=== PATIENT | male | born 1955 | race Caucasian/White ===

== ENCOUNTER 2018-09-08 21:29 | Emergency (ER) | payer SELFPAY ==
[2018-09-08] MEDS ORDERED: GI Cocktail Oral Solution 30 ML PO ONE (21:47)
--- NOTE | 2018-09-08 21:53 | EDM.PDOC ---
ED HPI GENERAL MEDICAL PROBLEM - General Chief Complaint: General Stated Complaint: muscle pain Time Seen by Provider: 09/08/18 21:32 Source of Information: Reports: Patient - History of Present Illness INITIAL COMMENTS - FREE TEXT/NARRATIVE: Patient comes into the emergency department with complaints of lower back discomfort and epigastric discomfort. Patient states that his pain started about mid day. He states that he had a sudden sharp onset of lower bilateral back muscle spasms. He stated that it started to radiate up both of his sides and he started to notice that he had some indigestion. After noting the muscle pain and indigestion he decided to take 2 aspirins, 2 allergy medications- unknown of the names or dosing, baking soda/water, and gustavo and salt for relief. Patient states that his muscle pain has dissipated however he still has indigestion/heartburn. He states that he gets this quite often especially after taking allergy medications. He tries not to take allergy medications very often. However he was outdoors for great length of time today and he thought maybe the muscle discomfort and pain was related to the allergies in the pollen in the air. Patient denies any chest pain, respiratory compromise, nausea or vomiting, urinary frequency or hesitancy, GI upset with diarrhea or constipation , or lower extremity swelling. He describes the epigastric as a burning indigestion and feels like acid is coming up his throat. Patient also denies any recent fevers or injuries. Pt does admit the pain and discomfort would get better if rubbing his muscles. The pain also goes away at times and then returns in a different area of the body during questioning and assessment. Last bowel movement today. Onset: Gradual Quality: Reports: Ache, Dull Severity: Mild Improves with: Reports: None Worsens with: Reports: None Associated Symptoms: Reports: No Other Symptoms - Related Data Allergies Allergy/AdvReac Type Severity Reaction Status Date / Time No Known Allergies Allergy Verified 09/08/18 21:42 Home Meds: Home Meds Sulfamethoxazole/Trimethoprim [Sulfamethoxazole-Tmp Ds Tablet] 1 each PO BID #3 tablet 09/09/18 [Rx] Past Medical History Cardiovascular History: Reports: Hypertension Social & Family History - Tobacco Use Smoking Status *Q: Current Every Day Smoker Years of Tobacco use: 50 Packs/Tins Daily: 1 ED ROS GENERAL - Review of Systems Review Of Systems: ROS reveals no pertinent complaints other than HPI. Constitutional: Reports: No Symptoms HEENT: Reports: No Symptoms Respiratory: Reports: No Symptoms Cardiovascular: Reports: No Symptoms Endocrine: Reports: No Symptoms GI/Abdominal: Reports: No Symptoms : Reports: No Symptoms Musculoskeletal: Reports: Back Pain, Muscle Pain, Muscle Stiffness Skin: Reports: No Symptoms Neurological: Reports: No Symptoms Psychiatric: Reports: No Symptoms Hematologic/Lymphatic: Reports: No Symptoms ED EXAM, GENERAL - Physical Exam Exam: See Below Exam Limited By: No Limitations General Appearance: Alert, WD/WN, No Apparent Distress Respiratory/Chest: No Respiratory Distress, Lungs Clear, Normal Breath Sounds, No Accessory Muscle Use, Chest Non-Tender Cardiovascular: Normal Peripheral Pulses, Regular Rate, Rhythm GI/Abdominal: Normal Bowel Sounds, Soft, Non-Tender Back Exam: Muscle Spasm Extremities: Normal Inspection, Normal Range of Motion Neurological: Alert, Oriented, Normal Gait Psychiatric: Normal Affect, Normal Mood Skin Exam: Warm, Dry, Intact, Normal Color Course - Vital Signs Last Recorded V/S: Last Vital Signs Temp 36.5 C 09/08/18 21:29 Pulse 78 09/08/18 21:29 Resp 16 09/08/18 21:29 BP 151/87 H 09/08/18 22:30 Pulse Ox 97 09/08/18 21:29 - Orders/Labs/Meds Orders: Active Orders 24 hr Category Date Time Status EKG Documentation Completion [RC] STAT Care 09/08/18 22:10 Active Abdomen Pelvis wo Cont [CT] Stat Exams 09/08/18 23:02 Taken Labs: Laboratory Tests 09/08/18 09/08/18 09/08/18 Range/Units 22:46 22:46 22:46 WBC 10.4 H (4.0-10.0) x10^3/uL RBC 4.60 (4.5-6.0) x10^6/uL Hgb 13.3 L (14.0-18.0) g/dL Hct 38.6 L (40.0-52.0) % MCV 83.9 (78.0-93.0) fL MCH 28.9 (26.0-32.0) pg MCHC 34.5 (32.0-36.0) g/dL RDW Coeff of [place] 13.3 (10.0-15.0) % Plt Count 195 (130-400) x10^3/uL Neut % (Auto) 81.1 H (50.0-80.0) % Lymph % (Auto) 12.6 L (25.0-50.0) % [place] % (Auto) 5.3 (2.0-11.0) % Eos % (Auto) 0.6 (0.0-4.0) % Baso % (Auto) 0.4 (0.2-1.2) % Sodium 146 H (136-145) mmol/L Potassium 3.9 (3.5-5.1) mmol/L Chloride 108 H (98-107) mmol/L Carbon Dioxide 26 (21-32) mmol/L Anion Gap 15.9 (10-20) mmol/L BUN 9 (7-18) mg/dL Creatinine 0.9 (0.70-1.30) mg/dL Est Cr Clr Drug Dosing TNP Estimated GFR (MDRD) > 60 Glucose 111 H (74-106) mg/dL Calcium 8.7 (8.5-10.1) mg/dL Corrected Calcium 9.02 (8.5-10.1) mg/dL Total Bilirubin 0.2 (0.2-1.0) mg/dL AST 13 L (15-37) U/L ALT 26 (16-63) U/L Alkaline Phosphatase 81 (46-116) U/L Troponin I < 0.017 (<=0.056) ng/mL Total Protein 7.3 (6.4-8.2) g/dL Albumin 3.6 (3.4-5.0) g/dL Globulin 3.7 Albumin/Globulin Ratio 0.97 Amylase 28 (25-115) U/L Lipase 91 (73-393) U/L Urine Color (YELLOW) Urine Appearance (CLEAR) Urine pH (5.0-8.0) Ur Specific [place] Urine Protein (NEGATIVE) mg/dL Urine Glucose (UA) (NEGATIVE) mg/dL Urine Ketones (NEGATIVE) mg/dL Urine Occult Blood (NEGATIVE) Urine Nitrite (NEGATIVE) Urine Bilirubin (NEGATIVE) Urine Urobilinogen (0.2) EU/dL Ur Leukocyte Esterase (NEGATIVE) Urine RBC (NOT SEEN) /HPF Urine WBC (NOT SEEN) /HPF Ur Squamous Epith Cells (NEGATIVE) /HPF Urine Bacteria (NEGATIVE) /HPF Hyaline Casts (NEGATIVE) /HPF Urine Mucus (NEGATIVE) /LPF 09/09/18 Range/Units 00:01 WBC (4.0-10.0) x10^3/uL RBC (4.5-6.0) x10^6/uL Hgb (14.0-18.0) g/dL Hct (40.0-52.0) % MCV (78.0-93.0) fL MCH (26.0-32.0) pg MCHC (32.0-36.0) g/dL RDW Coeff of [place] (10.0-15.0) % Plt Count (130-400) x10^3/uL Neut % (Auto) (50.0-80.0) % Lymph % (Auto) (25.0-50.0) % [place] % (Auto) (2.0-11.0) % Eos % (Auto) (0.0-4.0) % Baso % (Auto) (0.2-1.2) % Sodium (136-145) mmol/L Potassium (3.5-5.1) mmol/L Chloride (98-107) mmol/L Carbon Dioxide (21-32) mmol/L Anion Gap (10-20) mmol/L BUN (7-18) mg/dL Creatinine (0.70-1.30) mg/dL Est Cr Clr Drug Dosing Estimated GFR (MDRD) Glucose (74-106) mg/dL Calcium (8.5-10.1) mg/dL Corrected Calcium (8.5-10.1) mg/dL Total Bilirubin (0.2-1.0) mg/dL AST (15-37) U/L ALT (16-63) U/L Alkaline Phosphatase (46-116) U/L Troponin I (<=0.056) ng/mL Total Protein (6.4-8.2) g/dL Albumin (3.4-5.0) g/dL Globulin Albumin/Globulin Ratio Amylase (25-115) U/L Lipase (73-393) U/L Urine Color Yellow (YELLOW) Urine Appearance Clear (CLEAR) Urine pH 8.5 H (5.0-8.0) Ur Specific [place] 1.015 Urine Protein Trace H (NEGATIVE) mg/dL Urine Glucose (UA) Negative (NEGATIVE) mg/dL Urine Ketones Negative (NEGATIVE) mg/dL Urine Occult Blood Trace-lysed H (NEGATIVE) Urine Nitrite Negative (NEGATIVE) Urine Bilirubin Negative (NEGATIVE) Urine Urobilinogen 0.2 (0.2) EU/dL Ur Leukocyte Esterase Negative (NEGATIVE) Urine RBC 0-5 (NOT SEEN) /HPF Urine WBC 0-5 (NOT SEEN) /HPF Ur Squamous Epith Cells Few H (NEGATIVE) /HPF Urine Bacteria Few H (NEGATIVE) /HPF Hyaline Casts Few H (NEGATIVE) /HPF Urine Mucus Many H (NEGATIVE) /LPF Meds: Medications Discontinued Medications Generic Name Dose Route Start Last Admin Trade Name Freq PRN Reason Stop Dose Admin Al Hydroxide/Mg Hydroxide 30 ml 09/08/18 21:47 09/08/18 21:54 Gi Cocktail PO 09/08/18 21:48 30 ml ONETIME ONE Administration Ketorolac Tromethamine 30 mg 09/08/18 23:31 09/08/18 23:38 Toradol IM 09/08/18 23:32 30 mg NOW STA Administration Orphenadrine Citrate 60 mg 09/08/18 21:57 09/08/18 22:16 Norflex IM 09/08/18 21:58 60 mg NOW STA Administration Trimethoprim/Sulfamethoxazole 1 tab 09/09/18 00:05 09/09/18 00:14 Septra Ds PO 09/09/18 00:06 1 tab NOW STA Administration Trimethoprim/Sulfamethoxazole 1 packet 09/09/18 00:10 Take Home: Sulfameth/Trimet 800-160mg, 2 Pack PO 09/09/18 00:11 ONETIME ONE - Re-Assessments/Exams Free Text/Narrative Re-Assessment/Exam: 09/08/18 22:45 Patient is feeling better at this time. VSS 09/08/18 23:05 The pain across the abdomen is back and it is a constant pain. 09/09/18 00:16 Pt is feeling much better and is resting comfortably. Would like to go home. VSS Departure - Departure Time of Disposition: 12:20 Disposition: Home, Self-Care 01 Condition: Good Clinical Impression: Cystitis - Discharge Information *PRESCRIPTION DRUG MONITORING PROGRAM REVIEWED*: Not Applicable *COPY OF PRESCRIPTION DRUG MONITORING REPORT IN PATIENT VALDEMAR: Not Applicable Prescriptions: Sulfamethoxazole/Trimethoprim [Sulfamethoxazole-Tmp Ds Tablet] 1 each PO BID #3 tablet Instructions: Urinary Tract Infection, Adult, Sulfamethoxazole; Trimethoprim, SMX-TMP tablets Referrals: Tuyet Brady, [employer]INE[employer] [Primary Care Provider] - Forms: ED Department Discharge Additional Instructions: 1. rest 2. increase your water intake 3. Take all of your antibiotics as prescribed 4. If your urine culture comes back with a bacteria the antibiotic you are on will not get rid of staff members will call you and change the medication. If no call is made then the medication should cover the bacteria growing 5. It is recommended you follow up with your PCP regarding chronic inflammation of your prostate 6. Can take over the counter AZO to help with bladder spasms as needed follow the bottles recommendation for dosing instructions 7. Can alternate between ibuprofen and Tylenol as needed for pain or discomfort 8. Call with any questions or concerns - Problem List Review Problem List Initiated/Reviewed/Updated: Yes - My Orders Last 24 Hours: My Active Orders 09/08/18 22:10 EKG Documentation Completion [RC] STAT 09/08/18 23:02 Abdomen Pelvis wo Cont [CT] Stat - Assessment/Plan Last 24 Hours: My Active Orders 09/08/18 22:10 EKG Documentation Completion [RC] STAT 09/08/18 23:02 Abdomen Pelvis wo Cont [CT] Stat Assessment:: 1. muscle pain 2. heart burn Plan: 1. GI cocktail given in ER. with immediate relief. However, pain return within 45 minutes 2. Norflex given in ER. with some relief noted. 3. EKG completed. results reviewed with the patient. negative findings 4. Patients symptoms are very vague and inconsistent. Will start with GI cocktail and Norflex for comfort. Since symptoms are not being relieved we will draw labs. 5. Labs completed in the ER. Results reviewed with the patient. 6. Patient is not feeling better despite above test. A CT-scan is ordered 7. CT results reveal mild diffuse thickening of the bladder. Chronic bladder outlet obstruction from prostatomegaly and/or cystitis. 8. UA/UC completed 9. Toradol 30mg IM given to help with the pain and discomfort 10. Education regarding antibiotic, activity, rest, OTC medications and follow up as needed. 11. All questions and concerns addressed prior to discharge.
[2018-09-08 23:15] LABS: CHLORIDE,CL 108 mmol/L (98-107); SODIUM,NA 146 mmol/L (136-145)
[2018-09-08 23:17] LABS: ANION GAP 15.9 mmol/L (10-20)
[2018-09-08] MEDS ORDERED: Ketorolac 30 MG/ML SDV IM STA (23:31)
[2018-09-09] MEDS ORDERED: Sulfamethoxazole/Trimethoprim 800-160 MG Tab PO STA (00:05)
[2018-09-09] MEDS ORDERED: Take Home: Sulfamethoxazole/Trimethoprim 800-160 MG Tab, 2 Tab Pack PO ONE (00:10)
--- NOTE | 2018-09-09 07:51 | CT ---
[id number] CT/CT Abdomen Pelvis WO IV Exam: CT Abdomen Pelvis WO IV Clinical Data: ABDOMINAL PAIN COMPARISON: NO PREVIOUS SIMILAR EXAM IS AVAILABLE FINDINGS: The exam was performed without IV contrast limiting the study somewhat. There is mild ectasia of the abdominal aorta. The aorta measures 2.8 cm in diameter. There is mild bowel distention. There are early atheromatous calcifications. The appendix is normal. The pelvis shows no mass or adenopathy. There is mild thickening of the wall of the urinary bladder. The prostate is mildly enlarged. The gallbladder is not distended. The liver and spleen, adrenals, pancreas, and kidneys otherwise show no acute abnormalities. There is no free air or free fluid. There are degenerative changes of the spine. IMPRESSION: MILD THICKENING OF THE URINARY BLADDER WALL. MILD ILEUS. Aguila Alexis MD 09/09/18 [id number] Thank you for allowing us to participate in the care of your patient.
== END 2018-09-09 00:27 | disposition home or self-care (01) ==
LOC: VM.ED 21:29
DX: N30.90 Cystitis, unspecified without hematuria (principal); M79.10 Myalgia, unspecified site; R12 Heartburn; F17.210 Nicotine dependence, cigarettes, uncomplicated; Z79.899 Other long term (current) drug therapy
CPT/HCPCS: 36415; 74176; 80053; 81001; 82150; 83690; 84484; 85025; 93005; 96372; 99283; 99284; A9270; J1885; J2360